=== PATIENT | female | born 1945 | race Hispanic/Latino ===

== ENCOUNTER 2017-01-09 10:28 | Inpatient (IN) | payer MEDICARE ==
--- NOTE | 2017-01-09 11:24 | XRay Report ---
CHEST 2 VIEWS INDICATION: Shortness of breath. COMPARISON: None similar. FINDINGS: PA and lateral chest radiographs demonstrate normal cardiomediastinal silhouette. Clear lungs. Possible osteopenia. Mild thoracic spine degenerative spurring. CONCLUSION: No acute disease in the chest. Thank you for the opportunity to participate in this patient's care.
[2017-01-09 12:12] LABS: Basophils % (Auto) 0.7 % (0.0-1.8); Eosinophils % (Auto) 0.4 % (0.0-4.3); Hematocrit 40.6 % (30.3-42.9); Hemoglobin 13.7 gm/dl (10.1-14.3); Mean Corpuscular HGB Conc 34 % (30-34); Mean Corpuscular Hemoglobin 33 pg (28-32); Mean Corpuscular Volume 97 fl (79-97); Platelet Count 209 K/mm3 (140-440); Red Blood Count 4.19 M/mm3 (3.65-5.03); Red Cell Distribution Width 13.6 % (13.2-15.2); White Blood Count 5.1 K/mm3 (4.5-11.0)
[2017-01-09 12:31] LABS: Anion Gap 16 mmol/L; BUN/Creatinine Ratio 15.71; Blood Urea Nitrogen 11 mg/dL (7-17); Calcium 9.2 mg/dL (8.4-10.2); Carbon Dioxide 27 mmol/L (22-30); Chloride 103.7 mmol/L (98-107); Glucose 97 mg/dL (65-100); Sodium 143 mmol/L (137-145)
--- NOTE | 2017-01-09 17:52 | Emergency Department Report ---
HPI - General Chief Complaint: Chest Pain Time Seen by Provider: 01/09/17 17:28 - HPI HPI: Room 25 The patient is a 71-year-old female presenting with a chief complaint of chest pain. The patient states she has had intermittent left chest discomfort for the past 3 weeks. The patient states last night the symptoms worsen including pain in the left upper extremity rating to the neck. Patient states the left chest pain is described as a pressure and associated with diaphoresis. Patient denies shortness of breath nausea or vomiting. The patient states her last stress test occurred over 5 years ago and she has never had a cardiac catheterization Location: Left chest, left upper extremity Duration: Intermittent 3 weeks Quality: Pressure Severity: Currently 0/10 Modifying factors: [see above] Context: [see above] Mode of transportation: [not driving] ED Past Medical Hx - Past Medical History Previous Medical History?: Yes Hx Hypertension: Yes Additional medical history: high cholesterol; mitral valve prolapse - Surgical History Past Surgical History?: Yes Additional Surgical History: hysterectomy 1987; left rotator cuff 2009 - Family History Family history: no significant - Social History Smoking Status: Never Smoker Substance Use Type: None - Medications Home Medications: Home Medications Medication Instructions Recorded Confirmed Last Taken Type Lisinopril/Hydrochlorothiazide 10 - 12.5 mg PO QDAY 11/12/13 11/12/13 Unknown History [Zestoretic 10-12.5 mg] ED Review of Systems ROS: Stated complaint: CHEST PAIN Other details as noted in HPI Comment: All other systems reviewed and negative Constitutional: diaphoresis Eyes: denies: eye pain, eye discharge, vision change ENT: denies: ear pain, throat pain Respiratory: shortness of breath Cardiovascular: chest pain Endocrine: no symptoms reported Gastrointestinal: denies: abdominal pain, nausea, diarrhea Genitourinary: denies: urgency, dysuria, discharge Musculoskeletal: denies: back pain, joint swelling, arthralgia Skin: denies: rash, lesions Neurological: denies: headache, weakness, paresthesias Psychiatric: denies: anxiety, depression Hematological/Lymphatic: denies: easy bleeding, easy bruising Physical Exam - Physical Exam Vital Signs: Vital Signs 01/09/17 10:46 Temperature 98.5 F Pulse Rate 50 L Respiratory 16 Rate O2 Sat by Pulse 100 Oximetry Physical Exam: GENERAL: The patient is well-developed well-nourished female sitting on stretcher not appear to be in acute distress. [] HEENT: Normocephalic. Atraumatic. Extraocular motions are intact. Patient has moist mucous membranes. NECK: Supple. Trachea midline CHEST/LUNGS: Clear to auscultation. There is no respiratory distress noted. HEART/CARDIOVASCULAR: Regular. There is no tachycardia. There is no gallop rub or murmur. ABDOMEN: Abdomen is soft, nontender. Patient has normal bowel sounds. There is no abdominal distention. SKIN: There is no rash. There is no diaphoresis. NEURO: The patient is awake, alert, and oriented. The patient is cooperative. The patient has normal speech MUSCULOSKELETAL: There is no evidence of acute injury. ED Course Vital Signs 01/09/17 10:46 Temperature 98.5 F Pulse Rate 50 L Respiratory 16 Rate O2 Sat by Pulse 100 Oximetry ED Medical Decision Making - Lab Data Result diagrams: 01/09/17 11:47 01/09/17 11:47 Laboratory Tests 01/09/17 01/09/17 01/09/17 10:42 11:47 11:47 WBC 5.1 RBC 4.19 Hgb 13.7 Hct 40.6 MCV 97 MCH 33 H MCHC 34 RDW 13.6 Plt Count 209 Lymph % (Auto) 31.1 [place] % (Auto) 5.8 Eos % (Auto) 0.4 Baso % (Auto) 0.7 Lymph # 1.6 [place] # 0.3 Eos # 0.0 Baso # 0.0 Seg Neutrophils % 62.0 Seg Neutrophils # 3.2 Sodium 143 Potassium 4.0 Chloride 103.7 Carbon Dioxide 27 Anion Gap 16 BUN 11 Creatinine 0.7 Estimated GFR > 60 BUN/Creatinine Ratio 15.71 Glucose 97 POC Glucose 107 H Calcium 9.2 Troponin T < 0.010 - EKG Data -: EKG Interpreted by Me EKG shows normal: sinus rhythm Rate: bradycardia (49 bpm) - EKG Data When compared to previous EKG there are: previous EKG unavailable Interpretation: nonspecific ST-T wave joshua (biphasic T-wave in lead V2) - Radiology Data Radiology results: image reviewed (chest x-ray) interpreted by me: Chest x-ray- no focal infiltrates, no pneumothorax - Differential Diagnosis ACS, pericarditis, GERD Critical care attestation.: If time is entered above; I have spent that time in minutes in the direct care of this critically ill patient, excluding procedure time. ED Disposition Clinical Impression: Chest pain Disposition: OP ADMITTED IP TO THIS HOSP Is pt being admited?: Yes Does the pt Need Aspirin: Yes Condition: Fair Instructions: Chest Pain (ED) Referrals: DANN MENDOZA MD [Primary Care Provider] - 3-5 Days Time of Disposition: 17:56 (hospitalist notified)
--- NOTE | 2017-01-09 18:22 | Admit Criteria Form ---
Admission Criteria Documentation: CHEST PAIN Clinical Indications for Admission to Inpatient Care (Place 'X' for any and all applicable criteria): Admission is indicated for chest pain and ANY ONE of the following(1)(2)(3)(4)(5 ): [ ]I. Angina with acute coronary syndrome (Also use Myocardial Infarction or Angina guideline) [ ]II. Hemodynamic instability [ ]III. Angina needing acute intervention as indicated by ALL of the following( 11)(12): [ ]a) Unstable angina is present as indicated by angina that is ANY ONE of the following: [ ]i) New onset [ ]ii) Nocturnal [ ]iii) Prolonged at rest [ ]iv) Progressive [ ]b) Angina warrants acute intervention as indicated by ANY ONE of the following: [ ]i) Recurrent angina (e.g, not responding as previously to treatment) [ ]ii) Angina at rest or with low-level activities despite initial medical therapy [ ]iii) New or presumably new ST-segment depression on ECG [ ]iv) Signs or symptoms of heart failure (eg, dyspnea, pulmonary edema) [ ]v) New or worsening mitral regurgitation [ ]vi) Hemodynamic instability [ ]vii) Dangerous arrhythmia (eg, sustained ventricular tachycardia) [ ]viii) History of percutaneous coronary intervention within 6 months [ ]ix) History of coronary artery bypass graft surgery [ ]x) MELISSA risk score of 2 or greater[A] [ ]xi) History of Diabetes(14) [ ]xii) High-risk cardiac ischemia findings on noninvasive testing (e.g, echocardiogram, treadmill testing, nuclear scan) [ ]xiii) Chronic renal insufficiency (ie, estimated GFR less than 60 mL/min/1.732m) [ ]xiv) Left ventricular ejection fraction less than 40% [ ]IV. Evidence of AK (eg, cardiac biomarkers positive, ST-segment elevation on ECG) also use Myocardial Infarction Criteria Form. [ ]V. Pulmonary edema [ ]. Respiratory distress [ ]VII. Chest pain indicative of serious diagnosis other than coronary artery disease (eg, aortic dissection) [ ]VIII. Contraindications and/or Inappropriate clinical situations for Observational Care in patients with Chest Pain, when ANY ONE of the following is required: [ ]a) Patient with risk factor for pulmonary embolism, acute coronary syndrome and myocardial infarction (18) [ ]b) Patient with Pulmonary embolism require an average LOS of 4.3 days, therefore emergency department observation management is inappropriate 18,23 [ ]c) Painful condition/s in the elderly, have the highest rate of recidivism after emergency department observation management (10.8%) 20,21,22 [ ]d) Elevated cardiac biomarker requires intensive and exhaustive care (19) [X ]IX. General contraindications and/or Inappropriate clinical situations for Observational Care in patients with Chest Pain, when ANY ONE of the following is required: [ X]a) Prediction of prolongation of LOS based on ANY ONE of the following may be considered as a contraindication for observational care 2, 3, 4, 5, 6, 7, 8, 9, 10, 11 [ X]i) Age > 65 yrs. [ ]ii) Patient arriving by ambulance [ ]iii) Patient with high acuity [ ]iv) Patient requiring vital sign monitoring [ ]v) Patient on IV medication [ ]b) Systolic blood pressures 180mmHg 3,12 [ ]c) Patient with altered mental status including delirium and other alteration of consciousness, (3) [ ]d) Patient whose discharge disposition will be to a longterm home or rehabilitation home should not be managed in Emergency Department Observation Unit. CMS rule requires 3 days hospital stay before such placement. 3,13 [ ]e) Patient with failure to thrive due to broad array of etiologies 3,16,17 [ ]f) Inability to ambulate 3,14 Extended stay beyond goal length of stay may be needed for (1)(28): [ ]a) Specific condition diagnosed after evaluation (eg, pulmonary embolism, aortic dissection) [ ]b) Unstable angina [ ]c) Continued suspicion of acute coronary syndrome with inability to complete needed cardiac evaluation (eg, patient clinically unable to undergo stress testing) [ ]d) Myocardial infarction (Contents from ANGINA and CHEST PAIN clinical indications for admission to inpatient care have been integrated in this form) The original [employer] content created by [employer] has been revised. The portions of the content which have been revised are identified through the use of italic text or in bold, and [facility] [employer] has neither reviewed nor approved the modified material. All other unmodified content is copyright [employer] Please see references footnoted in the original [facility] [employer] edition 2016 Admission Criteria Met: Yes
[2017-01-09] MEDS ORDERED: NITRO-BID 2% TP ONE (18:33)
[2017-01-09] MEDS ORDERED: PLAVIX PO ONE (18:33)
[2017-01-09] MEDS ORDERED: MORPHINE IV PRN (18:34)
[2017-01-09] MEDS ORDERED: ZOFRAN IV ONE (18:34)
--- NOTE | 2017-01-09 23:39 | Event Note ---
Date: 01/09/17 See H/p in reports Chest pain -R/o CO HTN HLD
--- NOTE | 2017-01-10 00:47 | History and Physical Report ---
CHIEF COMPLAINT: Left-sided chest pain. HISTORY OF PRESENT ILLNESS: A 71-year-old female with history of hypertension, hyperlipidemia, and mitral valve prolapse, comes in for left-sided chest pain of previous duration, intermittent in nature, radiation into the neck, also some diaphoresis occasionally. Denies shortness of breath. Denies palpitations. Her last test was 5 years ago. Her MELISSA score is 2. Recent . PAST MEDICAL HISTORY: As mentioned, hypertension and high cholesterol and mitral valve prolapse. PAST SURGICAL HISTORY: Hysterectomy in 1987 and left rotator cuff surgery in 2009. FAMILY HISTORY: Hypertension. SOCIAL HISTORY: Does not smoke. CURRENT MEDICATIONS: Zestoretic 10/12.5 daily and simvastatin 20 mg daily. REVIEW OF SYSTEMS: CONSTITUTIONAL: No weight loss or weight gain. No fever, no chills. HEENT: No sore throat. No postnasal drip. CARDIOVASCULAR AND RESPIRATORY SYSTEM: Chest pain as mentioned in history of present illness. Radiation to the left side of the neck associated with diaphoresis. No shortness of breath. No wheezing. GASTROINTESTINAL: No nausea, no vomiting, no diarrhea. GENITOURINARY: No dysuria, no flank pain. MUSCULOSKELETAL: No joint pains. She has left shoulder pain secondary to rotator cuff tear. no muscle pains. CENTRAL NERVOUS SYSTEM: No syncope, no seizures. SKIN: No rashes. ENDOCRINE: No polyphagia, polydipsia, cold intolerance, or hot intolerance. PSYCHIATRIC: No psych problems. HEMATOLOGIC AND LYMPHATIC: No easy bruising or lymphedema. A 14-point review of systems done. PHYSICAL EXAMINATION: GENERAL: Elderly female lying in bed comfortably. VITAL SIGNS: Blood pressure is 160/59, temperature is 98.5, pulse is 50, respirations are 16. HEENT: Unremarkable. Pupils equal and reactive. NECK: Supple, no lymphadenopathy, no thyromegaly. LUNGS: Clear to auscultation and percussion. Good air entry. CARDIOVASCULAR: S1, S2 heard. No gallop, no murmur, no rub. Apical impulse in left fifth intercostal space in midclavicular line. ABDOMEN: Soft and benign. No hepatosplenomegaly. No guarding, no rigidity. Hernial orifices are normal. EXTREMITIES: Good pedal pulses. No pedal edema. CENTRAL NERVOUS SYSTEM: Alert and oriented x 4, nonfocal exam. SKIN: Normal. LABORATORY DATA: EKG shows normal sinus rhythm, nonspecific ST-T wave changes, biphasic T-wave in leads . Chest x-ray: No focal infiltrates. Labs are within normal limits. Electrolytes are normal. ASSESSMENT AND PLAN: 1. Chest pain. Differential diagnosis of acute coronary syndrome versus costochondritis versus gastroesophageal reflux disease, serial cardiac enzymes and Lexiscan ordered. 2. Hypertension. Continue Zestoretic. 3. Hyperlipidemia. Continue simvastatin. 4. Deep venous thrombosis prophylaxis, Lovenox 40 mg subcutaneous daily. JOB# [id number] VSM/NTS
[2017-01-10] MEDS ORDERED: MILK OF MAGNESIA PO PRN (09:00)
[2017-01-10] MEDS ORDERED: SODIUM CHLORIDE FLUSH SYRINGE 10 ML IV PRN (09:00)
[2017-01-10] MEDS ORDERED: TYLENOL PO PRN (09:00)
[2017-01-10] MEDS ORDERED: ZOFRAN IV PRN (09:00)
[2017-01-10] MEDS ORDERED: NACL 0.9% 1000 ML 1,000 ML IV SCH (09:00)
[2017-01-10] MEDS ORDERED: HYDROCHLOROTHIAZIDE PO SCH (10:00)
[2017-01-10] MEDS ORDERED: DULCOLAX PR PRN (10:00)
[2017-01-10] MEDS ORDERED: LISINOPRIL PO SCH (10:00)
--- NOTE | 2017-01-10 10:27 | Progress Note ---
Assessment and Plan Assessment and plan: 1. Chest pain. Patient will be placed on the chest pain protocol. Follow-up serial EKG and troponins. Echocardiogram and Stress thallium this morning. 2. Hypertension. Resume antihypertensives medications. 3. Hyperlipidemia. Continue Zocor. History Interval history: No new issues overnight. Chest pain resolved. Hospitalist Physical - Constitutional Vitals: Temp Pulse Resp BP Pulse Ox 98.5 F 50 L 18 131/64 97 01/10/17 09:40 01/10/17 09:40 01/10/17 09:40 01/10/17 09:40 01/10/17 09:40 General appearance: Present: no acute distress, well-nourished - EENT Eyes: Present: PERRL, EOM intact ENT: hearing intact, clear oral mucosa, dentition normal - Neck Neck: Present: supple, normal ROM - Respiratory Respiratory effort: normal Respiratory: bilateral: CTA - Cardiovascular Rhythm: regular Heart Sounds: Present: S1 & S2. Absent: gallop, rub - Extremities Extremities: no ischemia, No edema, Full ROM - Abdominal General gastrointestinal: soft, non-tender, non-distended, normal bowel sounds - Integumentary Integumentary: Present: clear, warm, dry - Neurologic Neurologic: CNII-XII intact, moves all extremities Results - Labs CBC & Chem 7: 01/09/17 11:47 01/09/17 11:47 Labs: Laboratory Last Values WBC 5.1 K/mm3 (4.5-11.0) 01/09/17 11:47 RBC 4.19 M/mm3 (3.65-5.03) 01/09/17 11:47 Hgb 13.7 gm/dl (10.1-14.3) 01/09/17 11:47 Hct 40.6 % (30.3-42.9) 01/09/17 11:47 MCV 97 fl (79-97) 01/09/17 11:47 MCH 33 pg (28-32) H 01/09/17 11:47 MCHC 34 % (30-34) 01/09/17 11:47 RDW 13.6 % (13.2-15.2) 01/09/17 11:47 Plt Count 209 K/mm3 (140-440) 01/09/17 11:47 Lymph % (Auto) 31.1 % (13.4-35.0) 01/09/17 11:47 [place] % (Auto) 5.8 % (0.0-7.3) 01/09/17 11:47 Eos % (Auto) 0.4 % (0.0-4.3) 01/09/17 11:47 Baso % (Auto) 0.7 % (0.0-1.8) 01/09/17 11:47 Lymph # 1.6 K/mm3 (1.2-5.4) 01/09/17 11:47 [place] # 0.3 K/mm3 (0.0-0.8) 01/09/17 11:47 Eos # 0.0 K/mm3 (0.0-0.4) 01/09/17 11:47 Baso # 0.0 K/mm3 (0.0-0.1) 01/09/17 11:47 Seg Neutrophils % 62.0 % (40.0-70.0) 01/09/17 11:47 Seg Neutrophils # 3.2 K/mm3 (1.8-7.7) 01/09/17 11:47 Sodium 143 mmol/L (137-145) 01/09/17 11:47 Potassium 4.0 mmol/L (3.6-5.0) 01/09/17 11:47 Chloride 103.7 mmol/L (98-107) 01/09/17 11:47 Carbon Dioxide 27 mmol/L (22-30) 01/09/17 11:47 Anion Gap 16 mmol/L 01/09/17 11:47 BUN 11 mg/dL (7-17) 01/09/17 11:47 Creatinine 0.7 mg/dL (0.7-1.2) 01/09/17 11:47 Estimated GFR > 60 ml/min 01/09/17 11:47 BUN/Creatinine Ratio 15.71 % 01/09/17 11:47 Glucose 97 mg/dL (65-100) 01/09/17 11:47 POC Glucose 107 (70-105) H 01/09/17 10:42 Calcium 9.2 mg/dL (8.4-10.2) 01/09/17 11:47 Troponin T < 0.010 ng/mL (0.00-0.029) 01/09/17 11:47
[2017-01-10 10:48] LABS: Creatine Kinase MB 1.7 ng/mL (0.0-4.0)
[2017-01-10 10:50] LABS: Creatine Kinase 69 units/L (30-135)
[2017-01-10] MEDS: ZESTRIL PO SCH (11:53)
[2017-01-10] MEDS: HCTZ PO SCH (11:53)
[2017-01-10] MEDS: LOVENOX SUB-Q SCH (11:54)
[2017-01-10 13:48] LABS: Creatine Kinase MB 1.8 ng/mL (0.0-4.0)
[2017-01-10 13:51] LABS: Creatine Kinase 69 units/L (30-135)
[2017-01-10 15:22] LABS: Creatine Kinase MB 1.9 ng/mL (0.0-4.0)
[2017-01-10 15:23] LABS: Creatine Kinase 77 units/L (30-135)
[2017-01-10] MEDS ORDERED: ZOCOR PO SCH (22:00)
[2017-01-10] MEDS ORDERED: SIMVASTATIN 5 MG PO SCH (22:00)
[2017-01-11 05:33] LABS: Basophils % (Auto) 0.6 % (0.0-1.8); Hemoglobin 13.4 gm/dl (10.1-14.3); Mean Corpuscular HGB Conc 33 % (30-34); Mean Corpuscular Hemoglobin 32 pg (28-32); Mean Corpuscular Volume 97 fl (79-97); Platelet Count 190 K/mm3 (140-440); Red Blood Count 4.12 M/mm3 (3.65-5.03); Red Cell Distribution Width 13.8 % (13.2-15.2); White Blood Count 5.2 K/mm3 (4.5-11.0)
[2017-01-11 05:56] LABS: Anion Gap 17 mmol/L; BUN/Creatinine Ratio 17.14; Blood Urea Nitrogen 12 mg/dL (7-17); Calcium 8.6 mg/dL (8.4-10.2); Carbon Dioxide 26 mmol/L (22-30); Chloride 104.5 mmol/L (98-107); Glucose 104 mg/dL (65-100); Potassium 3.6 mmol/L (3.6-5.0); Sodium 144 mmol/L (137-145)
[2017-01-11] MEDS ORDERED: LEXISCAN IV ONE (08:30)
[2017-01-11 12:46] VITALS: BP 156/67
[2017-01-11] MEDS: ZESTRIL PO SCH (12:46)
[2017-01-11] MEDS: LOVENOX SUB-Q SCH (12:46)
[2017-01-11] MEDS: HCTZ PO SCH (12:47)
--- NOTE | 2017-01-11 14:25 | Discharge Summary ---
Providers - Providers Date of Admission: 01/09/17 18:37 Date of discharge: 01/11/17 Attending physician: TANIA DELATORRE 01/10/17 Consult to Cardiac Rehabilitation [CONS] Routine Reason For Exam: Phase I Primary care physician: DANN MENDOZA Hospitalization Reason for admission: CP Condition: Fair Hospital course: This is a 71-year-old female who presented through the emergency department with complaints of chest pain. Patient states that she's had intermittent chest pain for the past 3 weeks prior to admission. Patient states that her pain the night prior to admission worsened with radiation to her left neck and left arm. Patient described the pain as a pressure and associated with diaphoresis. Patient underwent myocardial perfusion scan which was found to be negative. Patient also underwent echocardiogram which will be followed up as an outpatient. Etiology of chest transferred to be secondary to reflux. Patient will be discharged with Protonix. Dedicated discharge time 35 minutes. Disposition: DISCHARGED TO HOME OR SELFCARE Time spent for discharge: 35 - Discharge Diagnoses (1) GERD (gastroesophageal reflux disease) Status: Acute Qualifiers: Esophagitis presence: E (2) Chest pain Status: Acute Qualifiers: Chest pain type: C Core Measure Documentation - Palliative Care Palliative Care/ Comfort Measures: Not Applicable - Core Measures Any of the following diagnoses?: none Exam - Constitutional Vitals: Temp Pulse Resp BP Pulse Ox 97.6 F 65 16 156/67 97 01/11/17 13:45 01/11/17 13:45 01/11/17 13:45 01/11/17 13:45 01/11/17 13:45 General appearance: Present: no acute distress, well-nourished - EENT Eyes: Present: PERRL ENT: hearing intact, clear oral mucosa - Neck Neck: Present: supple, normal ROM - Respiratory Respiratory effort: normal Respiratory: bilateral: CTA - Cardiovascular Heart Sounds: Present: S1 & S2. Absent: rub, click - Extremities Extremities: pulses symmetrical, No edema Peripheral Pulses: within normal limits - Abdominal General gastrointestinal: Present: soft, non-tender, non-distended, normal bowel sounds Female genitourinary: Present: normal - Integumentary Integumentary: Present: clear, warm, dry - Musculoskeletal Musculoskeletal: gait normal, strength equal bilaterally - Psychiatric Psychiatric: appropriate mood/affect, intact judgment & insight - Neurologic Neurologic: CNII-XII intact, moves all extremities Plan Activity: no restrictions Weight Bearing Status: Full Weight Bearing Diet: regular Follow up with: DANN MENDOZA MD [Primary Care Provider] - 3-5 Days Prescriptions: Pantoprazole [Protonix] 40 mg PO QDAY #30 tablet
== END 2017-01-11 16:55 | disposition home or self-care (01) | DRG 392 ==
LOC: ED 10:28 → 4A 18:37
PROVIDERS: ADMIT Internal Medicine; ATTEND Hospitalist
DX: K21.9 Gastro-esophageal reflux disease without esophagitis (principal); I10 Essential (primary) hypertension; E78.5 Hyperlipidemia, unspecified; Z88.5 Allergy status to narcotic agent; Z88.6 Allergy status to analgesic agent; Z90.710 Acquired absence of both cervix and uterus
CPT/HCPCS: 36415; 71020; 78452; 80048; 82550; 82553; 82962; 84484; 85025; 93005; 93010; 93017; 93306; A9502; J1650; J2785